=== PATIENT | female | born 1940 | race Caucasian/White ===

== ENCOUNTER 2016-09-26 18:14 | Emergency (ER) | payer MEDICARE ==
[2016-09-26 21:09] LABS: HEMOGLOBIN 12.3 gm/dl (12.3-15.3); RED BLOOD COUNT 4.11 M/UL (4.00-5.10)
[2016-09-26 21:36] LABS: BUN/CREATININE RATIO 30 (0-10)
== END 2016-09-27 09:10 ==
LOC: ER1 18:14
PROVIDERS: Emergency Medicine
DX: R42 Dizziness and giddiness (principal); I10 Essential (primary) hypertension; Z79.899 Other long term (current) drug therapy
CPT/HCPCS: 36415; 70450; 80053; 81001; 82550; 82553; 83690; 83874; 84484; 85025; 85610; 85730; 87086; 93005; 96374; 96376; 99285; J0360

== ENCOUNTER → 2021-09-05 | Outpatient (CLI) | payer MEDICARE ==
[~2021-09-05] MED LIST: AMLODIPINE BESY10 MG PO; ASPIRIN EC81 MG PO; CETIRIZINE HCL10 MG PO; FISH OIL + D31 EACH PO; IMDUR ER TAB 6060 MG PO; LORTAB 7.5-3251 EACH PO; LOVASTATIN20 MG PO; LOVENOX30 MG/0.3 SQ; MULTI-VITAMIN1 EACH PO; NORCO 10-325 T1 EACH PO; PANTOPRAZOLE SO40 MG PO; RANITIDINE HCL300 MG PO; RESTORIL 15 MG15 MG PO; SERTRALINE HCL25 MG PO
== END ==
LOC: KOH-I 15:00
DX: R04.2 Hemoptysis (principal); K76.89 Other specified diseases of liver; Q61.02 Congenital multiple renal cysts
CPT/HCPCS: 71250

== ENCOUNTER → 2021-09-09 | Outpatient (CLI) | payer MEDICARE | LOC: HEART 5 16:37 | DX: J43.9 Emphysema, unspecified (principal); Z87.891 Personal history of nicotine dependence | CPT/HCPCS: 94060; 94729 ==